=== PATIENT | female | born 1995 | race Caucasian/White ===

== ENCOUNTER 2016-10-29 22:09 | Emergency (ER) | payer OTHER ==
[~2016-10-29] VITALS: Ht 160 cm; Wt 68.1 kg
[~2016-10-29 22:09] MED LIST: TRAM50TA2 PO
[2016-10-29 22:14] VITALS: Ht 160 cm; Wt 68.1 kg
[2016-10-29] MEDS ORDERED: ACETAMINOPHEN 500 MG TAB PO STA (23:37)
[2016-10-30] LABS: URINE BLOOD (Dip) POC 1+ (NEGATIVE)
--- NOTE | 2016-10-30 00:40 | RADRPT ---
PROCEDURE: XR Abdomen. CLINICAL INDICATION: Abdominal pain. Clinical concern for obstruction. TECHNIQUE: AP supine abdomen x-rays, 2 images submitted to the PACS for review. COMPARISON: None. FINDINGS: The bowel gas pattern is normal. There is no evidence of obstruction. No visceromegaly, soft tissue mass or pathologic calcification is demonstrated. The osseous structures are unremarkable. RPTAT:HJJR IMPRESSION: Unremarkable abdomen radiographs without evidence of obstruction. Physician Carlos Date Time Electronically viewed and signed by Physician Carlos on 10/30/2016 00:39 JR/
--- NOTE | 2016-10-30 00:57 | ERD ---
ER Documentation Chief Complaint Date/Time DATE: 10/30/16 TIME: 00:56 Chief Complaint diffuse abd pain w/ back pain today HPI This is a 21-year-old female with a history of appendicitis 10 years ago presenting to the emergency department complaining of diffuse abdominal pain. Patient states that it started at 830 and described as sharp however it subsided now and she does not have the pain anymore. Patient denies any nausea , vomiting, diarrhea, dysuria, hematuria. Patient's last bowel movement was at 6 PM and normal. Patient's last meal was at 5 PM. Patient admits to flatulence. Patient is unsure when her last menstrual period is. ROS All systems reviewed and are negative except as per history of present illness. Medications Home Meds Active Scripts Acetaminophen* (Tylenol*) 325 Mg Tablet, 650 MG PO Q4H Y for MILD PAIN LEVEL 1-3 , #30 TAB Prov:MITESH LUCIANO PA-C 10/30/16 Tramadol HCl (Tramadol HCl) 50 Mg Tab, 50 MG PO Q4 Y for PAIN, #14 TAB Prov:SLOAN AKBAR MD 04/30/15 Allergies Allergies: Coded Allergies: No Known Allergy (Unverified , 11/05/14) PMhx/Soc History of Surgery: Yes (c section 11/05/14, APPENDECTOMY 2006) Anesthesia Reaction: No Hx Neurological Disorder: No Hx Respiratory Disorders: No Hx Cardiac Disorders: No Hx Psychiatric Problems: No Hx Miscellaneous Medical Probl: No Hx Alcohol Use: No Hx Substance Use: No Hx Tobacco Use: No Smoking Status: Never smoker Physical Exam Vitals Vital Signs Date Time Temp Pulse Resp B/P Pulse Ox O2 Delivery O2 Flow Rate FiO2 10/30/16 02:06 97.8 62 18 110/69 100 Room Air 10/29/16 22:14 97.8 88 20 116/66 100 Physical Exam GENERAL: well-developed/well-nourished, in no apparent distress, non-toxic appearing HENT: NC/AT, moist mucous membranes EYES: Conjunctiva normal NECK: Supple, no lymphadenopathy PULM: CTA bilaterally, no rales, rhonchi, or wheezing heard CV: Normal S1S2, RRR, good capillary refill GI: Soft, non-distended, minimally tender in epigastric region and suprapubic region Normal bowel sounds, no masses or organomegaly felt on exam No gross peritonitis, no bruits Negative Rovsing, negative Meléndez, negative McBurney's point, Negative CVAT BACK: No masses EXT: No clubbing, cyanosis, or edema NEURO: Alert and Orientated SKIN: Intact, normal turgor PSYCH: Normal mood and mentation Results 24 hrs Laboratory Tests Test 10/30/16 00:02 Bedside Urine Blood 1+ Bedside Urine Glucose (UA) Negative Bedside Urine Ketones (LAB) Negative Bedside Urine Leukocyte Esterase (L Negative Bedside Urine Nitrite (LAB) Negative Bedside Urine Protein (LAB) Negative Bedside Urine pH (LAB) 5.5 Current Medications Medications (Trade) Dose Ordered Sig/Robby Route PRN Reason Start Time Stop Time Status Last Admin Dose Admin Acetaminophen (Tylenol Tab) 1,000 mg ONCE STAT PO 10/29/16 23:37 10/29/16 23:38 DC 10/30/16 00:15 PROCEDURE: XR Abdomen. CLINICAL INDICATION: Abdominal pain. Clinical concern for obstruction. TECHNIQUE: AP supine abdomen x-rays, 2 images submitted to the PACS for review. COMPARISON: None. FINDINGS: The bowel gas pattern is normal. There is no evidence of obstruction. No visceromegaly, soft tissue mass or pathologic calcification is demonstrated. The osseous structures are unremarkable. RPTAT:HJJR IMPRESSION: Unremarkable abdomen radiographs without evidence of obstruction. Physician Carlos Date Time Electronically viewed and signed by Physician Carlos on 10/30/2016 00:39 JR/ CC: MITESH LUCIANO PA-C Procedures/MDM This is a 21-year-old female presenting to the emergency room complaining of vague abdominal pain which was worse at 830. Patient is a stable vital signs, she has afebrile. She appears well and laughing. She does not seem to be in any distress. At this time her pain is very minimal and subsided. Patient is concerned that when her last menstrual period was. A urinalysis was done did not show any evidence of urinary tract infection. Urine test was negative. X-ray KUB was done to rule out obstruction, there was no evidence of obstruction. Patient was given Tylenol, I have reassessed her and she feels a lot better. At this time patient is stable for discharge to follow-up with her primary care physician for further action management. I discussed return the ER for any worsening signs or symptoms. Patient understands and agrees with this plan Departure Diagnosis: Primary Impression: Abdominal pain Abdominal location: unspecified location Qualified Code: R10.9 - Abdominal pain, unspecified location Condition: Stable MITESH LUCIANO PA-C Oct 30, 2016 00:57
[2016-10-30] MEDS ORDERED: ACET325T33 PO (01:10)
[2016-10-30 02:06] VITALS: BP 110/69; PULSE 62; RESP 18; TEMP 97.8
== END 2016-10-30 02:07 | disposition home or self-care (01) ==
LOC: FTE 22:09
DX: R10.84 Generalized abdominal pain (principal)
CPT/HCPCS: 74000; 81003; Z7502; Z7610

== ENCOUNTER 2017-06-14 23:55 | Emergency (ER) | payer MEDICAID, OTHER ==
[~2017-06-14] VITALS: Ht 160 cm; Wt 65.5 kg
[~2017-06-14 23:55] MED LIST changes: +ACET325T33 PO
[2017-06-14 23:59] VITALS: Ht 160 cm; Wt 65.5 kg
[2017-06-15 03:39] LABS: ADD UMIC YES; UR ASCORBIC ACID NEGATIVE (NEGATIVE); UR BACTERIA FEW /HPF (NONE SEEN); UR BILIRUBIN (Dip) NEGATIVE (NEGATIVE); UR BLOOD (Dip) 3+ mg/dL (NEGATIVE); UR CLARITY SLIGHTLY CLOUDY (CLEAR); UR COLOR RED (YELLOW); UR GLUCOSE (Dip) NEGATIVE (NEGATIVE); UR KETONES (Dip) NEGATIVE (NEGATIVE); UR LEUKOCYTE ESTERASE (Dip) 1+ Leu/ul (NEGATIVE); UR NITRITE (Dip) NEGATIVE (NEGATIVE); UR RBC 5 /HPF (0-5); UR SPECIFIC GRAVITY (Dip) 1.004 (1.003-1.030); UR TOTAL PROTEIN (Dip) 2+ mg/dl (NEGATIVE); UR UROBILINOGEN (Dip) NEGATIVE (NEGATIVE)
[2017-06-15 04:07] LABS: BASOPHILS % 0.2 % (0.0-2.0); EOSINOPHILS % 0.3 % (0.0-7.0); HEMATOCRIT 43.2 % (37.0-47.0); HEMOGLOBIN 14.9 g/dl (12.0-16.0); LYMPHOCYTES # 1.9 10^3/ul (0.8-2.9); LYMPHOCYTES % 14.7 % (15.0-51.0); MEAN CORPUSCULAR HGB CONC 34.5 g/dl (32.0-37.0); MEAN CORPUSCULAR VOLUME 92.9 fl (82.0-101.0); MEAN PLATELET VOLUME 11.4 fl (7.4-10.4); MONOCYTE # 0.9 10^3/ul (0.3-0.9); MONOCYTES % 6.7 % (0.0-11.0); NEUTROPHIL # 10.3 10^3/ul (1.6-7.5); NEUTROPHILS % 77.6 % (39.0-77.0); PLATELET COUNT 217 10^3/UL (140-415); RED BLOOD COUNT 4.65 10^6/ul (4.20-5.40); RED CELL DISTRIBUTION WIDTH 12.5 % (11.5-14.5); WHITE BLOOD COUNT 13.2 10^3/ul (4.8-10.8)
--- NOTE | 2017-06-15 04:13 | RADRPT ---
PROCEDURE: US OB. CLINICAL INDICATION: Vaginal bleeding, blood clots. Clinical estimated gestational age is 5 weeks 4 days with estimated date of delivery 02/11/2018 TECHNIQUE: Transabdominal and transvaginal views of the pelvis are available for review. COMPARISON: No prior studies are available for comparison. FINDINGS: No intrauterine is seen. There is mild heterogeneity of the endometrium which could be sec ondary to blood products. The thickness of the endometrium equals 1.3 cm. The right ovary measures 3 .7 x 2.2 x 2.7 cm and is unremarkable. The left ovary measures 3 x 1.8 x 2.1 cm and is unremarkable. No adnexal mass is seen. Small amount of free fluid in cul-de-sac. IMPRESSION: No intrauterine is seen. There is mild heterogeneity of the endometrium which could be sec ondary to blood products. No ectopic seen. Small amount of free fluid in cul-de-sac. Diffe rential diagnosis includes early intrauterine , spontaneous in progress and ectopi c . Correlation with serial quantitative beta HCGs and follow-up ultrasound is recommended. RPTAT: HJES .Dheeraj Lebron MD, Date Time Electronically viewed and signed by .Dheeraj Lebron MD, on 06/15/2017 04:13 .S/
[2017-06-15] MEDS ORDERED: CEPHALEXIN 500 MG CAP PO STA (04:20)
[2017-06-15] MEDS ORDERED: ACETAMINOPHEN 325 MG TAB PO ONE (04:30)
[2017-06-15] MEDS ORDERED: CEPH-443 PO (04:43)
--- NOTE | 2017-06-15 05:09 | ERD ---
ER Documentation Chief Complaint Date/Time DATE: 06/15/17 TIME: 05:04 Chief Complaint vag bleed started @ 5pm w/ clots; 2 pads changed, pt 5 weeks HPI This is a 22-year-old female G1 2 P1 she is 5 weeks presenting to the emergency department complaining of vaginal bleeding since 5 PM today. Patient states that she has soiled 2 pads. She admits to having intermittent crampy mild to moderate pelvic pain. Denies any fevers, nausea vomiting ROS All systems reviewed and are negative except as per history of present illness. Medications Home Meds Active Scripts Cephalexin* (Keflex*) 500 Mg Capsule, 500 MG PO TID for 7 Days, CAP Prov:MITESH LUCIANO PA-C 06/15/17 Acetaminophen* (Tylenol*) 325 Mg Tablet, 650 MG PO Q4H Y for MILD PAIN LEVEL 1-3 , #30 TAB Prov:MITESH LUCIANO PA-C 10/30/16 Tramadol HCl (Tramadol HCl) 50 Mg Tab, 50 MG PO Q4 Y for PAIN, #14 TAB Prov:SLOAN AKBAR MD 04/30/15 Allergies Allergies: Coded Allergies: No Known Allergy (Unverified , 11/05/14) PMhx/Soc Medical and Surgical Hx: pt denies Medical Hx History of Surgery: Yes (c section 11/05/14, APPENDECTOMY 2006) Anesthesia Reaction: No Hx Neurological Disorder: No Hx Respiratory Disorders: No Hx Cardiac Disorders: No Hx Psychiatric Problems: No Hx Miscellaneous Medical Probl: No Hx Alcohol Use: No Hx Substance Use: No Hx Tobacco Use: No Smoking Status: Never smoker Physical Exam Vitals Vital Signs Date Time Temp Pulse Resp B/P Pulse Ox O2 Delivery O2 Flow Rate FiO2 06/14/17 23:59 99.7 100 20 124/65 99 Physical Exam General: WD/WN, in no apparent distress, non-toxic appearing HENT: NC/AT EYES: Conjunctiva normal, no icterus Extraocular muscles intact, pupils equal and reactive to light with consensual response No ptosis, proptosis Fluorescein staining examination with mcgowan lamp Negative Chris test NECK: Supple; no LAD PULM: Normal labored breathing CV: RRR Good capillary refill GI: Non-distended, no guarding BACK: No masses EXT: No clubbing, cyanosis, or edema NEURO: Moves on all fours SKIN: intact PSYCH: Normal mood Result Diagram: 06/15/17 0324 Results 24 hrs Laboratory Tests Test 06/15/17 03:02 06/15/17 03:24 Urine Color RED Urine Clarity SLIGHTLY CLOUDY Urine pH 6.0 Urine Specific [place] 1.004 Urine Ketones NEGATIVEmg/dL Urine Nitrite NEGATIVEmg/dL Urine Bilirubin NEGATIVEmg/dL Urine Urobilinogen NEGATIVEmg/dL Urine Leukocyte Esterase 1+Mer/ul Urine Microscopic RBC 5/HPF Urine Microscopic WBC 66/HPF Urine Bacteria FEW/HPF Urine Hemoglobin 3+mg/dL Urine Glucose NEGATIVEmg/dL Urine Total Protein 2+mg/dl White Blood Count 13.210^3/ul Red Blood Count 4.6510^6/ul Hemoglobin 14.9g/dl Hematocrit 43.2% Mean Corpuscular Volume 92.9fl Mean Corpuscular Hemoglobin 32.0pg Mean Corpuscular Hemoglobin Concent 34.5g/dl Red Cell Distribution Width 12.5% Platelet Count 87285^3/UL Mean Platelet Volume 11.4fl Neutrophils % 77.6% Lymphocytes % 14.7% Monocytes % 6.7% Eosinophils % 0.3% Basophils % 0.2% Nucleated Red Blood Cells % 0.0/100WBC Neutrophils # 10.310^3/ul Lymphocytes # 1.910^3/ul Monocytes # 0.910^3/ul Eosinophils # 0.010^3/ul Basophils # 0.010^3/ul Nucleated Red Blood Cells # 0.010^3/ul Beta HCG, Quantitative 4642.6mIU/ml Current Medications Medications (Trade) Dose Ordered Sig/Robby Route PRN Reason Start Time Stop Time Status Last Admin Dose Admin Acetaminophen (Tylenol Tab) 650 mg ONCE ONCE PO 06/15/17 04:30 06/15/17 04:31 DC 06/15/17 04:29 Cephalexin (Keflex) 500 mg ONCE STAT PO 06/15/17 04:20 06/15/17 04:22 DC 06/15/17 04:28 Procedures/MDM 22-year-old female presenting to the emergency department who states she is 5 weeks complains of vaginal bleeding since 5 PM, and differentials include but not limited to early , , ectopic . Patient is appropriate to be discharged home to return in 2 days for repeat ultrasound and beta hCG. Beta hCG was around 4000. Patient was also found to have a urinary tract infection, patient was given Keflex in the ED and a prescription for outpatient. Patient is neurovascular intact and humerus will be discharged home to return in 2 days sooner if condition worsens. follow-up with her [employer] OB ultrasound: No intrauterine is seen. There is mild heterogeneity of the endometrium which could be secondary to blood products. No ectopic seen. Small amount of free fluid in cul-de-sac. Differential diagnosis includes early intrauterine , spontaneous in progress and ectopic . Correlation with serial quantitative beta HCGs and follow-up ultrasound is recommended. Departure Diagnosis: Primary Impression: UTI (urinary tract infection) Additional Impression: Vaginal bleeding in Condition: Stable Patient Instructions: Understanding Urinary Tract Infections (UTIs), Vaginal Bleed in Additional Instructions: Return to this facility in 2 DAYS for a follow-up exam.Return sooner if your condition worsens. Take all medicines as directed. Return to this facility if you are not improving as expected. MITESH LUCIANO PA-C Jun 15, 2017 05:09
== END 2017-06-15 04:53 | disposition home or self-care (01) ==
LOC: FTE 23:55
DX: O23.41 Unspecified infection of urinary tract in pregnancy, first trimester (principal); R10.2 Pelvic and perineal pain; Z3A.01 Less than 8 weeks gestation of pregnancy
CPT/HCPCS: 36415; 76801; 76817; 81001; 84702; 85025; 86900; 86901; Z7502; Z7610